=== PATIENT | female | born 1985 | race Caucasian/White ===

== ENCOUNTER → 2016-05-10 | Outpatient (CLI) | payer OTHER ==
[~2016-05-10] MED LIST: ETON68IM3 SUBD
== END | disposition home or self-care (01) ==
LOC: CFH 14:06
PROVIDERS: ATTEND Nurse Practitioner Primary Care
DX: I08.1 Rheumatic disorders of both mitral and tricuspid valves (principal); I37.1 Nonrheumatic pulmonary valve insufficiency; J45.909 Unspecified asthma, uncomplicated; J20.9 Acute bronchitis, unspecified; F06.4 Anxiety disorder due to known physiological condition; R53.83 Other fatigue
CPT/HCPCS: 93306

== ENCOUNTER 2020-10-24 20:47 | Observation (INO) | payer OTHER ==
[~2020-10-24] VITALS: Ht 162.6 cm; Wt 67.8 kg
[2020-10-24] MEDS ORDERED: MORPHINE SULFATE 4 MG/ML, 1ML ONE (22:41)
[2020-10-24] MEDS ORDERED: VARE1TAB20 PO (22:49)
[2020-10-24] MEDS ORDERED: PHEN15CA2 PO (22:49)
[2020-10-24] MEDS: MORPHINE SULFATE 4 MG/ML, 1ML IVPush PRN (22:51)
--- NOTE | 2020-10-24 22:51 | NUR ---
Pt medicated for wrist pain per APR. [facility] at bedside to evaluate pt for admission. Pt resting in bed, L wrist propped up on pillow, CMS intact. Pt reports she is taking a break from the ice pack at this time.
[2020-10-24] MEDS ORDERED: ONDANSETRON 2MG/ML, 2ML IVPush ONE (23:00)
[2020-10-24] MEDS ORDERED: MELATONIN 5 MG TABLET PO PRN (23:30)
[2020-10-24] MEDS ORDERED: DOCUSATE 100 MG CAPSULE PO PRN (23:30)
[2020-10-25 00:06] LABS: INTERNATIONAL NORMALIZED RATIO 1.01 (0.93-1.1); PROTHROMBIN TIME 10.8 Seconds (9.6-11.5)
[2020-10-25] MEDS ORDERED: MORPHINE SULFATE 4 MG/ML, 1ML ONE (00:07)
[2020-10-25] MEDS: MORPHINE SULFATE 4 MG/ML, 1ML IVPush PRN (00:13)
--- NOTE | 2020-10-25 00:13 | NUR ---
PT MEDICATED PER DR MARTE FO PAIN PRIOR TO SPLINT APPLICATION.
[2020-10-25] MEDS ORDERED: ONDANSETRON 2MG/ML, 2ML ONE ×2 (00:27→07:00)
[2020-10-25] MEDS ORDERED: MORPHINE SULFATE 4 MG/ML, 1ML IVPush PRN (00:30)
[2020-10-25 02:06] VITALS: BP 105/83
[2020-10-25 02:07] VITALS: BP 127/72
[2020-10-25] MEDS: morphine SULFATE 10 MG/ML, 1ML IVPush PRN ×4 (02:53→07:03)
[2020-10-25 06:16] LABS: BASOPHILS % (AUTO) 1 % (0-1); EOSINOPHILS % (AUTO) 1 % (1-7); LYMPHOCYTES % (AUTO) 20 % (22-44); MEAN CORPUSCULAR HEMOGLOBIN 32.7 pg (27.0-34.8); MEAN CORPUSCULAR HGB CONC 33.5 g/dL (32.4-35.8); MEAN PLATELET VOLUME 9.3 fL (7.4-10.4); MONOCYTES % (AUTO) 6 % (2-9); NEUTROPHILS % (AUTO) 73 % (42-75); PLATELET COUNT 235 x10^3/uL (130-400); RED BLOOD COUNT 4.33 x10^6/uL (3.82-5.3); RED CELL DISTRIBUTION WIDTH 12.7 % (9.6-15.2)
[2020-10-25 06:25] LABS: ANION GAP 4 mmol/L (5-15); CHLORIDE 108 mmol/L (98-107); CREATININE 0.85 mg/dL (0.55-1.02)
[2020-10-25] MEDS ORDERED: ONDANSETRON 2MG/ML, 2ML IVPush PRN ×2 (07:00→10:30)
[2020-10-25] MEDS ORDERED: ONDANSETRON ODT 4 MG PO PRN (07:00)
[2020-10-25 09:00] VITALS: BP 126/80
[2020-10-25] MEDS ORDERED: EPINEPHRINE 1 MG/ML, 1ML ONE (09:25)
[2020-10-25] MEDS ORDERED: BUPIVACAINE/PF 0.5% ONE (09:25)
[2020-10-25] MEDS ORDERED: FENTANYL PF 250 MCG/5ML ONE (09:35)
[2020-10-25] MEDS ORDERED: MIDAZOLAM 1 MG/ML, 2ML ONE (09:35)
[2020-10-25] MEDS ORDERED: METHOCARBAMOL 1,000 MG in DEXTROSE 5% 100 ML IV PRN (10:30)
[2020-10-25] MEDS ORDERED: PROMETHAZINE 25 MG/ML, 1ML IVPush PRN (10:30)
[2020-10-25] MEDS ORDERED: LABETALOL 5MG/ML, 20ML IV PRN (10:30)
[2020-10-25] MEDS ORDERED: ACETAMINOPHEN 325 MG TABLET PO PRN (10:30)
[2020-10-25] MEDS ORDERED: HYDROmorphone 1 MG/ML, 1ML INJ IVPush PRN (10:30)
[2020-10-25] MEDS ORDERED: MEPERIDINE/PF 25MG/0.5ML IVPush PRN (10:30)
[2020-10-25] MEDS ORDERED: hydrALAzine 20 MG/ML, 1ML IV PRN (10:30)
[2020-10-25] MEDS ORDERED: LORazepam 2 MG/ML, 1ML IVPush PRN (10:30)
[2020-10-25] MEDS ORDERED: HALOPERIDOL 5 MG/ML IV PRN (10:30)
[2020-10-25] MEDS ORDERED: FENTANYL PF 100 MCG/2ML IV PRN (10:30)
[2020-10-25] MEDS ORDERED: OXYcodone 5 MG/5 ML ORAL.SOL UDC PO PRN (10:30)
[2020-10-25] MEDS ORDERED: EPHEDRINE 50 MG/ML, 1ML IVPush PRN (10:30)
[2020-10-25] MEDS ORDERED: FENTANYL PF 100 MCG/2ML ONE (11:03)
[2020-10-25] MEDS ORDERED: OXYcodone 5 MG/5 ML ORAL.SOL UDC ONE (11:04)
[2020-10-25] MEDS ORDERED: ACETAMINOPHEN 650 MG/20.3 ML UDC ONE (11:15)
[2020-10-25 12:20] VITALS: BP 103/70
[2020-10-25] MEDS ORDERED: OXYC5CAP2 PO (14:11)
== END 2020-10-25 15:30 | disposition home or self-care (01) ==
LOC: ED 21:00 → INTOOBSV 23:07 → EDIP 23:07 → 4NE 10-25 01:00
PROVIDERS: ADMIT Internal Medicine; ATTEND Internal Medicine
DX: S52.572A Other intraarticular fracture of lower end of left radius, initial encounter for closed fracture (principal); Z20.822 Contact with and (suspected) exposure to COVID-19; S52.612A Displaced fracture of left ulna styloid process, initial encounter for closed fracture; I08.1 Rheumatic disorders of both mitral and tricuspid valves; F17.210 Nicotine dependence, cigarettes, uncomplicated; V00.121A Fall from non-in-line roller-skates, initial encounter; Y93.51 Activity, roller skating (inline) and skateboarding; Y92.89 Other specified places as the place of occurrence of the external cause; Y90.2 Blood alcohol level of 40-59 mg/100 ml; Z79.899 Other long term (current) drug therapy; Z72.89 Other problems related to lifestyle
CPT/HCPCS: 25606; 36415; 73100; 73110; 80048; 80320; 85025; 85610; 85730; 87635; 96374; 96375; 96376; 99284; G0378; J2250; J2270; J2405; J2800; J3010; 76000; C1713; J0171; G0480